=== PATIENT | male | born 1995 | race Caucasian/White ===

== ENCOUNTER 2019-09-23 19:14 | Inpatient (IN) | payer OTHER, MEDICAID ==
[~2019-09-23] VITALS: Ht 177.8 cm; Wt 78.6 kg
[2019-09-23] MEDS ORDERED: QUET1TAB7 PO (19:38)
[2019-09-23] MEDS ORDERED: OLANZapine ORAL DISINTEGRATING TAB 5MG PO ONE (20:00)
[2019-09-23 20:09] LABS: AMPHETAMINES LEVEL URINE NEGATIVE (NEGATIVE); BARBITURATES URINE NEGATIVE (NEGATIVE); BENZODIAZEPINES URINE NEGATIVE (NEGATIVE); CANNABINOIDS URINE POSITIVE (NEGATIVE); COCAINE METABOLITE URINE NEGATIVE (NEGATIVE); METHADONE URINE NEGATIVE (NEGATIVE); OPIATES URINE NEGATIVE (NEGATIVE); PHENCYCLIDINE URINE NEGATIVE (NEGATIVE)
[2019-09-23 20:15] LABS: HEMATOCRIT 47.5 % (42.0-52.0); HEMOGLOBIN 16.3 g/dl (13.5-17.5); MEAN CORPUSCULAR HEMOGLOBIN 31.9 pg (27.0-33.0); MEAN CORPUSCULAR HGB CONC 34.3 g/dl (32.0-36.5); PLATELET COUNT, AUTOMATED 269 10^3/uL (150-450); RED BLOOD COUNT 5.11 10^6/uL (4.30-6.10); WHITE BLOOD COUNT 13.4 10^3/uL (4.0-10.0)
[2019-09-23 20:50] LABS: ACETAMINOPHEN LEVEL < 2.0 UG/ML (10.0-30.0); ALBUMIN 4.1 GM/DL (3.2-5.2); ALT/SGPT 37 U/L (12-78); BILIRUBIN,DIRECT 0.1 MG/DL (0.0-0.2); BILIRUBIN,TOTAL 0.3 MG/DL (0.2-1.0); BLOOD UREA NITROGEN 9 MG/DL (7-18); CALCIUM LEVEL 8.9 MG/DL (8.5-10.1); CARBON DIOXIDE LEVEL 27 MEQ/L (21-32); CHLORIDE LEVEL 107 MEQ/L (98-107); CREATININE FOR GFR 0.99 MG/DL (0.70-1.30); ETHYL ALCOHOL (ETHANOL) < 0.003 % (0.000-0.010); GLOMERULAR FILTRATION RATE > 60.0 (>60); GLUCOSE, FASTING 102 MG/DL (70-100); SALICYLATE LEVEL 2.8 MG/DL (5.0-30.0); SODIUM LEVEL 140 MEQ/L (136-145); TOTAL PROTEIN 7.1 GM/DL (6.4-8.2)
[2019-09-23] MEDS ORDERED: ACETAMINOPHEN TAB 650MG DOSE (2X325MG) PO PRN (21:30)
[2019-09-23] MEDS ORDERED: MAALOX 30 ML SUSP *UDC PO PRN (21:30)
[2019-09-23] MEDS ORDERED: MOM 30ML SUSPENSION UDC PO PRN (21:30)
[2019-09-23 22:58] VITALS: BP 123/71
[2019-09-23] MEDS: PALIPERIDONE 3 MG ER TAB (INVEGA) PO SCH (23:05)
[2019-09-23] MEDS: traZODone 50 MG TAB PO PRN (23:05)
[2019-09-24 06:30] VITALS: BP 125/78
[2019-09-24] MEDS: NICOTINE 21MG/24HR 1 EA TRANSDERMAL TD PRN (08:35)
--- NOTE | 2019-09-24 09:15 | MHHPEPDOC ---
[facility] History & Physical History and Physical DATE OF ADMISSION: Sep 23, 2019 at 21:25 New Patient Wenceslao Parekh MRN: N/A Date of : N/A Date of Service: 09/24/2019 Chief Complaint "I got all schizophrenia." History of Present Illness The patient, a 23-year-old man who recently moved to the area from [facility] presents after reportedly becoming quite psychotic, paranoid and unable to engage in any meaningful interview. He had been brought in by his aunt due to significant thoughts of self-harm with a thought of overdose on heroin. He had a previous history of drug use, but has been clean since. The patient met with, he had been started on Invega the previous evening by the on-call provider and reported that he was feeling much more level and much less paranoid. However, he reported that he had significant paranoia, difficulty feeling people inserting thoughts into his mind and worrying about people's thoughts towards him with increase in depression, feelings guilt, excessive reproach to a psychotic level. He is very tangential during the discussion and it is difficult to get a full and complete history from him, however, the majority is extracted from the chart. Review Of Systems Unable to obtain; however, appears to qualify for schizophrenia. Past Psychiatric History Reports no history of schizophrenia diagnosis, reports being tried on "bipolar medicine." Reports being hospitalized several years ago in [facility]. No current medications. Allergies Please see below. Family Psychiatric History Unclear at this time. Social History Reports previously living in [place]. Patient reports that his parents are currently alive, he previously lived in [place]. Substance Abuse History Reports having a history of significant alcohol, marijuana and opioids use in the past, but denies it currently. Medical History Unclear at this time. Mental Status Examination General: Fair hygiene Speech: Pressured Thought processes: Tangential. MSK: Smooth and coordinated gait, no signs of tremors or involuntary orofacial movements Thought content: Paranoid. Abstract reasoning, and computation: Impaired. Description of associations: Impaired. Description of abnormal or psychotic thoughts: Paranoid. Judgment: Limited. Insight: Limited. Orientation: Alert and orientated 3 Cognition: Grossly normal Recent and remote memory: Intact Attention span and concentration: Impaired secondary to thought process. Fund of knowledge: Adequate Mood: "okay" Affect: Flat with better reactivity. Diagnoses Schizophrenia. Cannabis use disorder, unspecified. Opioid use disorder, unspecified. Assessment and Plan Schizophrenia: Continue patient's Invega 3 mg nightly, patient amenable to injectable medicine. Reports in the past possibly being tried on risperidone. Start injectable 254 mg for loading dose and then 154 and stop the dose before discharge. Cannabis/opioid use: Unclear clinical significance at this time. Disposition Patient will need to be further kept on an involuntary stay and observed due to psychosis and suicidal thoughts. Problem List 1. Altered thoughts. 2. Suicidal thoughts. Initial Treatment Plan 1. Patient was admitted on a 9.39 legal status. 2. Complete history was obtained. 3. With patients permission, family will be contacted and database will be expanded. 4. Patients medication regimen will be reviewed and changed accordingly. 5. Patient will be provided with protected environment. 6. Patient will be treated with individual, group, and milieu therapies. 7. Patient will receive supportive psych-education. 8. Discharge planning will commence immediately. 9. Outpatient follow-up treatment will be strongly recommended. 10. The initial treatment plan will focus initially on: Estimated Length Of Stay 4 days. Time Spent 70 minutes with greater than 50% of time spent on counseling/coordination of care. Tuesday Vital Signs Vital Signs Date Time Temp Pulse Resp B/P (MAP) Pulse Ox O2 Delivery O2 Flow Rate FiO2 09/24/19 06:30 98.9 90 12 125/78 (94) 98 Room Air Laboratory Data 24H Labs Laboratory Tests 2 09/23/19 19:55: Nucleated Red Blood Cells % (auto) 0.0, Anion Gap 6L, Glomerular Filtration Rate > 60.0, Calcium Level 8.9, Total Bilirubin 0.3, Direct Bilirubin 0.1, Aspartate Amino Transf (AST/SGOT) 21, Alanine Aminotransferase (ALT/SGPT) 37, Alkaline Phosphatase 80, Total Protein 7.1, Albumin 4.1, Albumin/Globulin Ratio 1.37, Thyroid Stimulating Hormone (TSH) 0.580, Salicylates Level 2.8L, Urine Opiates Screen NEGATIVE, Urine Methadone Screen NEGATIVE, Acetaminophen Level < 2.0L, Urine Barbiturates Screen NEGATIVE, Urine Phencyclidine Screen NEGATIVE, Urine Amphetamines Screen NEGATIVE, Urine Benzodiazepines Screen NEGATIVE, Urine Cocaine Metabolite Screen NEGATIVE, Urine Cannabinoids Screen POSITIVEH, Ethyl Alcohol Level < 0.003 CBC/BMP Laboratory Tests 09/23/19 19:55 Medications Scheduled Quetiapine Fumarate (Quetiapine Fumarate) 25 Mg Tablet, 50 MG PO QHS, (Reported) Allergies Coded Allergies: No Known Allergies (Unverified , 09/23/19) CHADWICK CUELLAR DO Sep 24, 2019 09:15
[2019-09-24] MEDS ORDERED: PALIPERIDONE PALMITATE 234MG/1.5ML INJ (INVEGA)(FREE PSY INPT ONLY) IM ONE (13:00)
[2019-09-24 16:07] VITALS: BP 135/83
--- NOTE | 2019-09-24 17:37 | HPEPDOC ---
General Date of Admission Sep 23, 2019 at 21:25 Date of Service: Sep 24, 2019 Attending Physician: NICCI FREEMAN MD Chief Complaint The patient is a 23-year-old male admitted with a reason for visit of Unspecified Psychotic Disorder. Source: Patient Exam Limitations: No limitations History of Present Illness 23 yo M who was brought into the ED by his aunt after he expression SI and on evaluation reported "I think my parents are " with ongoing paranoid delusions in the setting of marijuana use. He reported SI with a plan to OD on heroin and bleach and wanted to end his life for various reasons. In the ED his work up was notable for presence of marijuana on toxicology screening with an otherwise normal CBC and BMP. [facility] severe depression with SI. Home Medications Scheduled Quetiapine Fumarate (Quetiapine Fumarate) 25 Mg Tablet, 50 MG PO QHS, (Reported) Allergies Coded Allergies: No Known Allergies (Unverified , 09/23/19) Past Medical History Medical History Depression PSUD Family History Significant Family History: No pertinent family hx Social History * Smoker: current smoker Alcohol: occationally Drugs: heroin (not clear if he uses, but plans to OD on heroin), marijuana Recent Travel/Sick Contacts: Denies: Recent travel, Recent sick contacts Psychosocial History: Depression, Suicidal thoughts A-FIB/CHADSVASC A-FIB History Current/History of A-Fib/PAF?: No Current PO Anticoag Therapy: No Age/Risk Factor Scoring CHADSVASC: CHADSVASC Response (Comments) Value Age Risk Factor Age < 65 years old 0 Gender Risk Factor Male 0 Hx of CHF No 0 Hx of HTN No 0 Hx of Stroke/TIA/or VTE No 0 Hx of Diabetes No 0 Hx of Vascular Disease No 0 Total 0 Treatment Treatment ordered: NONE Reason Anticoagulant not given: Not indicated/[id number] Review of Systems Constitutional: Denies: Chills, Fever, Night Sweats Eyes: Denies: Pain, Vision change ENT: Denies: Head Aches, Ear Pain, Dysphagia Skin: Denies: Rash, Lesions, Breakdown Pulmonary: Denies: Dyspnea, Cough Cardiovascular: Denies: Chest Pain, Palpitations, Orthopnea, Paroxysmal Noc. Dyspnea, Lt Headedness Gastrointestinal: Denies: Nausea, Vomiting, Abdominal Pain, Diarrhea Genitourinary: Denies: Dysuria, Frequency, Incontinence, Retention Hematologic: Denies: Bruising, Bleeding Excessively Endocrine: Denies: Polydipsia, Polyphagia, Polyuria, Heat Intolerance, Cold Intolerance, Other Endocrine Sx Musculoskeletal: Denies: Neck Pain, Back Pain, Joint Pain, Muscle Pain, Spasms Neurological: Denies: Weakness, Numbness, Change in speech, Confusion Psych: Reports: Depression, Thoughts of Self Harm, Other Psych (psychosis with belief that parents are , while high on marijuana) Physical Examination General Exam: Positive: Alert, No Acute Distress Eye Exam: Positive: PERRLA, Conjunctiva & lids normal, EOMI; Negative: Sclera icteric ENT Exam: Positive: Atraumatic, Mucous membr. moist/pink, Pharynx Normal Neck Exam: Positive: Supple; Negative: JVD, thyromegaly Chest Exam: Positive: Clear to auscultation, Normal air movement Heart Exam: Positive: Rate Normal, Regular Rhythm, Normal S1, Normal S2; Negative: Murmurs, Rubs Abdomen Exam: Positive: Normal bowel sounds, Soft; Negative: Tenderness, Hepatospenomegaly Extremity Exam: Positive: Normal pulses; Negative: Clubbing, Cyanosis, Edema Skin Exam: Positive: Nl turgor and temperature; Negative: Breakdown, Lesion Neuro Exam: Positive: Normal Gait, Normal Speech, Cranial Nerves 3-12 NL, Reflexes 2+ Psych Exam: Positive: Mental status NL, Mood NL, Oriented x 3 Vital Signs Vital Signs Date Time Temp Pulse Resp B/P (MAP) Pulse Ox O2 Delivery O2 Flow Rate FiO2 09/24/19 06:30 98.9 90 12 125/78 (94) 98 Room Air Laboratory Data Labs 24H Laboratory Tests 2 09/23/19 19:55: Nucleated Red Blood Cells % (auto) 0.0, Anion Gap 6L, Glomerular Filtration Rate > 60.0, Calcium Level 8.9, Total Bilirubin 0.3, Direct Bilirubin 0.1, Aspartate Amino Transf (AST/SGOT) 21, Alanine Aminotransferase (ALT/SGPT) 37, Alkaline Phosphatase 80, Total Protein 7.1, Albumin 4.1, Albumin/Globulin Ratio 1.37, Thyroid Stimulating Hormone (TSH) 0.580, Salicylates Level 2.8L, Urine Opiates Screen NEGATIVE, Urine Methadone Screen NEGATIVE, Acetaminophen Level < 2.0L, Urine Barbiturates Screen NEGATIVE, Urine Phencyclidine Screen NEGATIVE, Urine Amphetamines Screen NEGATIVE, Urine Benzodiazepines Screen NEGATIVE, Urine [place] Metabolite Screen NEGATIVE, Urine Cannabinoids Screen POSITIVEH, Ethyl Alcohol Level < 0.003 CBC/BMP Laboratory Tests 09/23/19 19:55 Assessment/Plan 23 yo man who [facility] with what appears to be paranoid delusions, anxiety as well as severe depression with suicidal ideation with clear plan. On medical evaluation, his physical examination is grossly benign and lab workup was benign as well. I will sign off at this time and defer psychiatric evaluation and treatment to the primary team. Of note, patient is a smoker and counselled on quitting which he said he would consider at another time and for now was placed on nicotine replacement therapy. Fortunately at this time, he appears to have improving insight and is receptive to pharmacological treatment for his psychiatric complaints. Plan / VTE VTE Prophylaxis Ordered?: No VTE Exclusion Mechanical Proph: Low Risk for VTE VTE Exclusion Pharmacological: At Low Risk for VTE NICCI FREEMAN MD Sep 24, 2019 15:23
[2019-09-24] MEDS: traZODone 50 MG TAB PO PRN (21:00)
[2019-09-24] MEDS: PALIPERIDONE 3 MG ER TAB (INVEGA) PO SCH (21:00)
[2019-09-25] MEDS: OLANZapine ORAL DISINTEGRATING TAB 5MG PO PRN (02:40)
[2019-09-25 06:26] VITALS: BP 131/63
[2019-09-25] MEDS: NICOTINE 21MG/24HR 1 EA TRANSDERMAL TD PRN (07:52)
--- NOTE | 2019-09-25 09:45 | MHIPNPDOC ---
[facility] Progress Note Progress Note Inpatient Progress Note Wenceslao Parekh MRN: N/A Date of : N/A Date of Service: 09/25/2019 History of Present Illness The patient, a 23-year-old man who recently moved to the area from [facility] presents after reportedly becoming quite psychotic, paranoid and unable to engage in any meaningful interview. He had been brought in by his aunt due to significant thoughts of self-harm with a thought of overdose on heroin. He had a previous history of drug use, but has been clean since. The patient met with, he had been started on Invega the previous evening by the on-call provider and reported that he was feeling much more level and much less paranoid. However, he reported that he had significant paranoia, difficulty feeling people inserting thoughts into his mind and worrying about people's thoughts towards him with increase in depression, feelings guilt, excessive reproach to a psychotic level. He is very tangential during the discussion and it is difficult to get a full and complete history from him, however, the majority is extracted from the chart. Interval History The patient is met with today. He still reports that he feels anxious and paranoid at times, but reports he did not have a good night sleep. He reports that he was anxious and had difficulty sleeping. He reports that he is generally doing okay, but at times will become paranoid. Staff report that he at times will be doing well, but becomes paranoid and add very quickly on the unit. However, he has had no behavioral problems or any threatening behaviors overnight. Review Of Systems General: Denies fever or appetite changes Cardiovascular: Denies Chest pain or palpations GI: Denies Nausea, vomiting, or bowel changes Respiratory: Denies shortness of breath or cough Neuro: Denies dizziness, tremors Derm: Denies any rashes or pruritus : Denies any dysuria or urinary problems MSK: Denies any muscle tightness or stiffness HEENT: Denies any vision changes or headaches Psychotherapy None on this visit. Vital Signs Reviewed. Mental Status Examination General: Fair hygiene Speech: Much less pressured. Thought processes: More fluid. MSK: Smooth and coordinated gait, no signs of tremors or involuntary orofacial movements Thought content: Much less paranoid thinking. Abstract reasoning, and computation: Impaired. Description of associations: Impaired. Description of abnormal or psychotic thoughts: Denies any suicidal or homicidal ideation. Denies any auditory or visual hallucinations at this time. Judgment: Limited. Insight: Limited. Orientation: Alert and orientated 3 Cognition: Grossly normal Recent and remote memory: Intact Attention span and concentration: Impaired secondary to thought process. Fund of knowledge: Adequate Mood: "okay" Affect: More reactive. Diagnoses Schizophrenia. Cannabis use disorder, unspecified. Opioid use disorder, unspecified. Assessment and Plan Schizophrenia: Continue patient's Invega 3 mg nightly, next dose will be given prior to discharge. We'll additionally add hydroxyzine for anxiety and sleep. He also asked for Seroquel 75 mg since it has helped him sleep in the past as well, we'll add at this time, patient amenable to injectable medicine. Reports in the past possibly being tried on risperidone. Start injectable 254 mg for loading dose and then 154 and stop the dose before discharge. Cannabis/opioid use: Unclear clinical significance at this time. Disposition Patient will need to stay further in order for medication titration. Time Spent 15 minutes. Tuesday Vital Signs Vital Signs Date Time Temp Pulse Resp B/P (MAP) Pulse Ox O2 Delivery O2 Flow Rate FiO2 09/25/19 06:26 97.3 69 12 131/63 (85) 98 Room Air Current Medications Current Medications Medications (Trade) Dose Ordered Sig/Yaya Route PRN Reason Start Time Stop Time Status Last Admin Dose Admin Acetaminophen (Tylenol Tab) 650 mg Q6HP PRN PO HEADACHE or DISCOMFORT 09/23/19 21:30 Al Hydrox/Mg Hydrox/Simethicone (Mylanta) 30 ml Q4HP PRN PO HEARTBURN/INDIGESTION 09/23/19 21:30 Home Med (Med Rec Complete!) ASDIRECTED XX 09/23/19 21:45 09/23/19 21:45 DC Magnesium Hydroxide (Milk Of Magnesia) 30 ml DAILYPRN PRN PO CONSTIPATION 09/23/19 21:30 Nicotine (Nicoderm Cq 21mg) 1 patch DAILY PRN TD Nicotine Withdrawal 09/23/19 21:30 09/25/19 07:52 Olanzapine (ZyPREXA ZYDIS) 5 mg Q6HP PRN PO AGITATION 09/23/19 21:30 09/25/19 02:40 Paliperidone (Invega) 3 mg QHS PO 09/23/19 21:30 09/24/19 21:00 Trazodone HCl (Desyrel) 50 mg QHSP PRN PO INSOMNIA 09/23/19 21:30 09/24/19 21:00 Allergies Coded Allergies: No Known Allergies (Unverified , 09/23/19) CHADWICK CUELLAR DO Sep 25, 2019 09:45
[2019-09-25] MEDS: hydrOXYzine 25 MG TAB PO PRN ×2 (12:03→19:09)
[2019-09-25 17:18] VITALS: BP 144/90
[2019-09-25] MEDS: QUEtiapine FUMARATE 25 MG TAB PO SCH (21:07)
[2019-09-25] MEDS: PALIPERIDONE 3 MG ER TAB (INVEGA) PO SCH (21:08)
[2019-09-26] MEDS: traZODone 50 MG TAB PO PRN (01:55)
[2019-09-26] MEDS: NICOTINE 21MG/24HR 1 EA TRANSDERMAL TD PRN (07:58)
[2019-09-26] MEDS: OLANZapine ORAL DISINTEGRATING TAB 5MG PO PRN (08:28)
--- NOTE | 2019-09-26 09:56 | MHIPNPDOC ---
[facility] Progress Note Progress Note Inpatient Progress Note Wenceslao Parekh MRN: N/A Date of : N/A Date of Service: 09/26/2019 History of Present Illness The patient, a 23-year-old man who recently moved to the area from [facility] presents after reportedly becoming quite psychotic, paranoid and unable to engage in any meaningful interview. He had been brought in by his aunt due to significant thoughts of self-harm with a thought of overdose on heroin. He had a previous history of drug use, but has been clean since. The patient met with, he had been started on Invega the previous evening by the on-call provider and reported that he was feeling much more level and much less paranoid. However, he reported that he had significant paranoia, difficulty feeling people inserting thoughts into his mind and worrying about people's thoughts towards him with increase in depression, feelings guilt, excessive reproach to a psychotic level. He is very tangential during the discussion and it is difficult to get a full and complete history from him, however, the majority is extracted from the chart. Interval History The patient is met with today. He reports he is feeling in control. but has significant anxiety and worry about a particular girl with some fixation. He reports that he feels better at sometimes and other times feels highly anxious. He reports that he is still interested in getting better, but at times will have a fleeting hopelessness at that times he feels might be suicidal. He has had no behavioral problems and generally is amenable to treatment and engaged as well. Review Of Systems Denies any particular physical side effects from the medicine. Psychotherapy None on this visit. Vital Signs Reviewed. Mental Status Examination General: Fair hygiene Speech: Much less pressured. Thought processes: More fluid. MSK: Smooth and coordinated gait, no signs of tremors or involuntary orofacial movements Thought content: Much less paranoid thinking. Abstract reasoning, and computation: Impaired. Description of associations: Impaired. Description of abnormal or psychotic thoughts: Denies any suicidal or homicidal ideation. Denies any auditory or visual hallucinations at this time. Judgment: Improved. Insight: Improved. Orientation: Alert and orientated 3 Cognition: Grossly normal Recent and remote memory: Intact Attention span and concentration: Impaired secondary to thought process. Fund of knowledge: Adequate Mood: "okay" Affect: More reactive. Diagnoses Schizophrenia. Cannabis use disorder, unspecified. Opioid use disorder, unspecified. Assessment and Plan Schizophrenia: Continue Invega 3 mg nightly, injection to be given tomorrow. We'll start Klonopin 0.5 mg BID PRN to help reduce anxiety, which are daily help improve his paranoia and hope meets the goal of discharge for Tuesday. Cannabis/opioid use: Unclear clinical significance at this time. Disposition Discharge on Tuesday if patient is able to resolve anxiety and depression as well as suicidal thoughts Time Spent 15 minutes. Tuesday Vital Signs Vital Signs Date Time Temp Pulse Resp B/P (MAP) Pulse Ox O2 Delivery O2 Flow Rate FiO2 09/25/19 17:18 97.8 109 18 144/90 (108) 09/25/19 08:00 Room Air 09/25/19 06:26 98 Current Medications Current Medications Medications (Trade) Dose Ordered Sig/Yaya Route PRN Reason Start Time Stop Time Status Last Admin Dose Admin Acetaminophen (Tylenol Tab) 650 mg Q6HP PRN PO HEADACHE or DISCOMFORT 09/23/19 21:30 Al Hydrox/Mg Hydrox/Simethicone (Mylanta) 30 ml Q4HP PRN PO HEARTBURN/INDIGESTION 09/23/19 21:30 Home Med (Med Rec Complete!) ASDIRECTED XX 09/23/19 21:45 09/23/19 21:45 DC Hydroxyzine HCl (Atarax) 25 mg Q6HP PRN PO ANXIETY 09/25/19 11:00 09/25/19 19:09 Magnesium Hydroxide (Milk Of Magnesia) 30 ml DAILYPRN PRN PO CONSTIPATION 09/23/19 21:30 Nicotine (Nicoderm Cq 21mg) 1 patch DAILY PRN TD Nicotine Withdrawal 09/23/19 21:30 09/26/19 07:58 Olanzapine (ZyPREXA ZYDIS) 5 mg Q6HP PRN PO AGITATION 09/23/19 21:30 09/26/19 08:28 Paliperidone (Invega) 3 mg QHS PO 09/23/19 21:30 09/25/19 21:08 Quetiapine Fumarate (SEROquel) 75 mg QHS PO 09/25/19 21:00 09/25/19 21:07 Trazodone HCl (Desyrel) 50 mg QHSP PRN PO INSOMNIA 09/23/19 21:30 09/26/19 01:55 Allergies Coded Allergies: No Known Allergies (Unverified , 09/23/19) CHADWICK CUELLAR DO Sep 26, 2019 09:56
[2019-09-26 16:18] VITALS: BP 146/90
[2019-09-26] MEDS ORDERED: LORazepam 0.5 MG TAB PO PRN (16:30)
[2019-09-26] MEDS: clonazePAM 0.5 MG TAB PO PRN (16:31)
[2019-09-26] MEDS: PALIPERIDONE 3 MG ER TAB (INVEGA) PO SCH (22:17)
[2019-09-26] MEDS: QUEtiapine FUMARATE 25 MG TAB PO SCH (22:17)
[2019-09-27 06:19] VITALS: BP 142/70
[2019-09-27] MEDS: OLANZapine ORAL DISINTEGRATING TAB 5MG PO PRN (08:21)
[2019-09-27] MEDS: NICOTINE 21MG/24HR 1 EA TRANSDERMAL TD PRN (08:21)
[2019-09-27] MEDS ORDERED: PALIPERIDONE PALMITATE 156MG/1ML INJ(INVEGA)(FREE PSY INPT ONLY) IM ONE (09:00)
--- NOTE | 2019-09-27 09:47 | MHIPNPDOC ---
[facility] Progress Note Progress Note Inpatient Progress Note Wenceslao Parekh MRN: N/A Date of : N/A Date of Service: 09/27/2019 History of Present Illness The patient, a 23-year-old man who recently moved to the area from [facility] presents after reportedly becoming quite psychotic, paranoid and unable to engage in any meaningful interview. He had been brought in by his aunt due to significant thoughts of self-harm with a thought of overdose on heroin. He had a previous history of drug use, but has been clean since. The patient met with, he had been started on Invega the previous evening by the on-call provider and reported that he was feeling much more level and much less paranoid. However, he reported that he had significant paranoia, difficulty feeling people inserting thoughts into his mind and worrying about people's thoughts towards him with increase in depression, feelings guilt, excessive reproach to a psychotic level. He is very tangential during the discussion and it is difficult to get a full and complete history from him, however, the majority is extracted from the chart. Interval History The patient is met with today. He reports he is doing much better and feels much more calm, he reported he slept very wella and the clonazepam has helped him become much less paranoid and he feels the Invega has been greatly helpful for him. He has been engaging more of his thoughts are clearer. Nursing staff report that he is much more engaged and his paranoia is significantly resolved. He's had no behavioral problems, overnight his feeling great about going home tomorrow. Review Of Systems General: Denies fever or appetite changes Cardiovascular: Denies Chest pain or palpations GI: Denies Nausea, vomiting, or bowel changes Respiratory: Denies shortness of breath or cough Neuro: Denies dizziness, tremors Derm: Denies any rashes or pruritus : Denies any dysuria or urinary problems MSK: Denies any muscle tightness or stiffness HEENT: Denies any vision changes or headaches Psychotherapy None on this visit. Vital Signs Reviewed. Mental Status Examination General: Well dressed with good hygiene Speech: Spontaneous and fluid Thought processes: Linear and logical MSK: Smooth and coordinated gait, no signs of tremors or involuntary orofacial movements Thought content: Future orientated Abstract reasoning, and computation: Intact Description of associations: Intact Description of abnormal or psychotic thoughts: Denies any suicidal or homicidal ideation. Denies any auditory or visual hallucinations. Does not appear to be responding to internal stimuli. Does not appear to be endorsing any bizarre or paranoid ideation. Judgment: fair Insight: fair Orientation: Alert and orientated 3 Cognition: Grossly normal Recent and remote memory: Intact Attention span and concentration: Intact Fund of knowledge: Adequate Mood: "okay" Affect: Euthymic with a full range Diagnoses Schizophrenia. Cannabis use disorder, unspecified. Opioid use disorder, unspecified. Assessment and Plan Schizophrenia: Continue Invega 3 mg nightly injection tomorrow. Continue Klonopin 0.5 mg BID. Will give second injection tomorrow before discharge. Cannabis/opioid use: referral to outpatient substance use. Disposition Discharge tomorrow if continues to improve. Time Spent 15 minutes. Vital Signs Vital Signs Date Time Temp Pulse Resp B/P (MAP) Pulse Ox O2 Delivery O2 Flow Rate FiO2 09/27/19 08:47 Room Air 09/27/19 06:19 98.0 98 18 142/70 (94) 99 Current Medications Current Medications Medications (Trade) Dose Ordered Sig/Yaya Route PRN Reason Start Time Stop Time Status Last Admin Dose Admin Acetaminophen (Tylenol Tab) 650 mg Q6HP PRN PO HEADACHE or DISCOMFORT 09/23/19 21:30 Al Hydrox/Mg Hydrox/Simethicone (Mylanta) 30 ml Q4HP PRN PO HEARTBURN/INDIGESTION 09/23/19 21:30 Clonazepam (KlonoPIN) 0.5 mg BIDP PRN PO anxiety 09/26/19 16:30 09/26/19 16:31 Home Med (Med Rec Complete!) ASDIRECTED XX 09/23/19 21:45 09/23/19 21:45 DC Hydroxyzine HCl (Atarax) 25 mg Q6HP PRN PO ANXIETY 09/25/19 11:00 09/26/19 16:21 DC 09/25/19 19:09 Lorazepam (Ativan) 0.5 mg BIDP PRN PO ANXIETY 09/26/19 16:30 09/26/19 16:24 DC Magnesium Hydroxide (Milk Of Magnesia) 30 ml DAILYPRN PRN PO CONSTIPATION 09/23/19 21:30 Nicotine (Nicoderm Cq 21mg) 1 patch DAILY PRN TD Nicotine Withdrawal 09/23/19 21:30 09/27/19 08:21 Olanzapine (ZyPREXA ZYDIS) 5 mg Q6HP PRN PO AGITATION 09/23/19 21:30 09/27/19 08:21 Paliperidone (Invega) 3 mg QHS PO 09/23/19 21:30 09/26/19 22:17 Quetiapine Fumarate (SEROquel) 75 mg QHS PO 09/25/19 21:00 09/26/19 22:17 Trazodone HCl (Desyrel) 50 mg QHSP PRN PO INSOMNIA 09/23/19 21:30 09/26/19 01:55 Allergies Coded Allergies: No Known Allergies (Unverified , 09/23/19) CHADWICK CUELLAR DO Sep 27, 2019 09:47
[2019-09-27] MEDS: clonazePAM 0.5 MG TAB PO PRN ×2 (12:09→20:28)
[2019-09-27 16:00] VITALS: BP 131/80
[2019-09-27 18:24] VITALS: BP 131/90
[2019-09-27] MEDS: QUEtiapine FUMARATE 25 MG TAB PO SCH (20:28)
[2019-09-27] MEDS: PALIPERIDONE 3 MG ER TAB (INVEGA) PO SCH (20:28)
[2019-09-28] MEDS: traZODone 50 MG TAB PO PRN (01:34)
[2019-09-28 06:23] VITALS: BP 129/61
[2019-09-28] MEDS ORDERED: PALIPERIDONE PALMITATE 156MG/1ML INJ(INVEGA)(FREE PSY INPT ONLY) IM ONE (09:00)
--- NOTE | 2019-09-28 09:23 | MHDSPDOC ---
[facility] Discharge Summary Discharge Summary DATE OF ADMISSION: Sep 23, 2019 at 21:25 DATE OF DISCHARGE: 09/28/19 Discharge Wenceslao Parekh MRN: N/A Date of : N/A Date of Service: 09/28/2019 Diagnoses Schizophrenia. Cannabis use disorder, unspecified. Opioid use disorder, unspecified. copy diagnosis copy History of Present Illness The patient, a 23-year-old man who recently moved to the area from [facility] presents after reportedly becoming quite psychotic, paranoid and unable to engage in any meaningful interview. He had been brought in by his aunt due to significant thoughts of self-harm with a thought of overdose on heroin. He had a previous history of drug use, but has been clean since. The patient met with, he had been started on Invega the previous evening by the on-call provider and reported that he was feeling much more level and much less paranoid. However, he reported that he had significant paranoia, difficulty feeling people inserting thoughts into his mind and worrying about people's thoughts towards him with increase in depression, feelings guilt, excessive reproach to a psychotic level. He is very tangential during the discussion and it is difficult to get a full and complete history from him, however, the majority is extracted from the chart. Consultants Involved Hospitalist/PCP screening Treatment and Progress On The Unit The patient was admitted to the inpatient mental health unit, subsequently started on Invega 3 mg nightly. He did well and his psychosis began to resolve. He subsequently made improvements and then was put onto the injectable, given the 2 shots over the time he was here. He had some paranoia, but had no behavioral problem, suicidality quickly resolved. He was started on low dose of clonazepam in order to treat his paranoia, which did well. He improved greatly and eventually became euthymic with a normal mental status exam and requested discharge. Discharge Assessment 23-year-old man with likely early-onset schizophrenia presents and is treated appropriately with injectable antipsychotics and a low dose of clonazepam. He improves well, is cooperative for treatment and appreciative. The patient at the time of discharge did not meet criteria for involuntary admission/extension due to having a normal mental status exam, fair insight into the situation, They are engaged in the discharge process, as well as being f riendly and amenable in behavioral control and havent been engaging in any observed concerning behavior or ideation recently. They decline voluntary extension/admission at this time and must be discharged in good aby, as Im unable to make a case for holding the patient against their will. They may have historical risk factors of admissions and other interactions with psychiatry however, those are not modifiable from a clinical perspective. The patient will need to be discharged in good aby. Mental Status Examination General: Well dressed with good hygiene Speech: Spontaneous and fluid Thought processes: Linear and logical MSK: Smooth and coordinated gait, no signs of tremors or involuntary orofacial movements Thought content: Future orientated Abstract reasoning, and computation: Intact Description of associations: Intact Description of abnormal or psychotic thoughts: Denies any suicidal or homicidal ideation. Denies any auditory or visual hallucinations. Does not appear to be responding to internal stimuli. Does not appear to be endorsing any bizarre or paranoid ideation. Judgment: fair Insight: fair Orientation: Alert and orientated 3 Cognition: Grossly normal Recent and remote memory: Intact Attention span and concentration: Intact Fund of knowledge: Adequate Mood: "okay" Affect: Euthymic with a full range Follow Up The social work team worked during the predischarge meeting in order to evaluate for further issues of lethality address them fully before discharge. They worked on safety planning with the patient's family members in order to ensure that the patient will have a safe and effective discharge. Time Spent The amount of time spent in the coordination of care for this patient was approximately 45 minutes. Tuesday Vital Signs/I&Os Vital Signs Date Time Temp Pulse Resp B/P (MAP) Pulse Ox O2 Delivery O2 Flow Rate FiO2 09/28/19 06:23 99.2 88 16 129/61 (83) 98 Room Air Medications Scheduled PRN Clonazepam (Clonazepam) 0.5 Mg Tablet, 0.5 MG PO QHSP PRN for anxiety for 14 Days, #14 Nicotine (Nicotine Patch) 21 Mg Patch.td24, 1 PATCH TD DAILY PRN for Nicotine Withdrawal for 30 Days, #30 Allergies Coded Allergies: No Known Allergies (Unverified , 09/23/19) CHADWICK CUELLAR DO September 28, 2019 09:23
[2019-09-28] MEDS ORDERED: CLON0.5T2 PO (09:40)
[2019-09-28] MEDS ORDERED: NICO21PAT TD (09:40)
[2019-09-28] MEDS: clonazePAM 0.5 MG TAB PO PRN (10:13)
== END 2019-09-28 12:15 | disposition home or self-care (01) | DRG 885 ==
LOC: M ED 19:14 → M ED INP 21:25 → M PSY 22:32
PROVIDERS: ADMIT Psychiatry & Neurology Psychiatry; ATTEND Psychiatry & Neurology Addiction Medicine
DX: F20.9 Schizophrenia, unspecified (principal); R45.851 Suicidal ideations; F12.10 Cannabis abuse, uncomplicated; F11.10 Opioid abuse, uncomplicated; Z79.899 Other long term (current) drug therapy; F17.200 Nicotine dependence, unspecified, uncomplicated

== ENCOUNTER → 2019-10-12 | Outpatient (CLI) | payer OTHER, BC ==
[~2019-10-12] MED LIST: BENA25CA4 PO; CLON0.5T2 PO; INVE117I IM; NICO21PAT TD; QUET1TAB7; QUET1TAB7 PO
== END ==
LOC: M LABSMTC 13:40
PROVIDERS: ATTEND Family Medicine
DX: Z11.59 Encounter for screening for other viral diseases (principal); Z03.818 Encounter for observation for suspected exposure to other biological agents ruled out
CPT/HCPCS: C9803; U0003

== ENCOUNTER 2019-10-19 20:12 | Emergency (ER) | payer BC, OTHER ==
[~2019-10-19] VITALS: Ht 177.8 cm; Wt 84.1 kg
[~2019-10-19 20:12] MED LIST changes: -BENA25CA4 PO; -INVE117I IM; -QUET1TAB7
[2019-10-19 20:13] VITALS: BP 128/73
[2019-10-19] MEDS ORDERED: QUET1TAB7 (20:18)
[2019-10-19] MEDS ORDERED: INVE117I IM (20:18)
[2019-10-19] MEDS ORDERED: BENA25CA4 PO (20:43)
[2019-10-19] MEDS: diphenhydrAMINE 25MG CAP PO ONE (20:45)
== END 2019-10-19 20:49 | disposition home or self-care (01) ==
LOC: M ED 20:12
DX: F20.9 Schizophrenia, unspecified (principal); R45.1 Restlessness and agitation; G47.00 Insomnia, unspecified; F17.200 Nicotine dependence, unspecified, uncomplicated; F41.9 Anxiety disorder, unspecified; Z79.899 Other long term (current) drug therapy